=== PATIENT | male | born 1965 | race Hispanic/Latino ===

== ENCOUNTER 2017-03-20 01:58 | Emergency (ER) | payer SELFPAY ==
[2017-03-20 02:11] VITALS: BP 143/89; PULSE 88; RESP 17; TEMP 98.1; O2SAT 97
--- NOTE | 2017-03-20 02:44 | ED PDOC ---
HPI: Psych/Substance Abuse Time Seen by Provider: 03/20/17 02:07 Chief Complaint (Nursing): Alcohol Ingestion Chief Complaint (Provider): Alcohol intoxication History Per: Patient History/Exam Limitations: no limitations Onset/Duration Of Symptoms: Hrs Current Symptoms Are (Timing): Still Present Suicide/Self Injury Attempted (Context): None Modifying Factor(s): Alcohol Severity: Moderate Additional Complaint(s): The patient is a 51yo male, brought to the ED by EMS for evaluation s/p pt was found publicly intoxicated. Patient was found drunk at [employer]; patient admits to drinking today and denies any falls or head injury - there is a trauma report brought in by EMS of a head injury sustained by the patient. Patient offers no other medical complaints. Past Medical History Reviewed: Historical Data, Nursing Documentation, Vital Signs Vital Signs: Last Vital Signs Temp 98.1 F 03/20/17 02:08 Pulse 88 03/20/17 02:08 Resp 17 03/20/17 02:08 BP 143/89 03/20/17 02:08 Pulse Ox 97 03/20/17 02:08 - Medical History PMH: No Chronic Diseases - Surgical History Surgical History: No Surg Hx - Family History Family History: States: No Known Family Hx - Social History Alcohol: > 2 Drinks/Day - Allergies Allergies/Adverse Reactions: Allergies Allergy/AdvReac Type Severity Reaction Status Date / Time No Known Allergies Allergy Verified 03/20/17 02:11 Review of Systems ROS Statement: Except As Marked, All Systems Reviewed And Found Negative Neurological: Negative for: Other (head injury) Psych: Positive for: Other (ETOH intoxication) Physical Exam - Reviewed Nursing Documentation Reviewed: Yes Vital Signs Reviewed: Yes - Physical Exam Appears: Positive for: Well, Non-toxic, No Acute Distress Head Exam: Positive for: ATRAUMATIC (abrasion on left pareital scalp noted, no bleeding. ), NORMAL INSPECTION, NORMOCEPHALIC Skin: Positive for: Normal Color Eye Exam: Positive for: Normal appearance, EOMI, PERRL Neck: Positive for: Normal, Supple Cardiovascular/Chest: Positive for: Regular Rate, Rhythm Respiratory: Positive for: Normal Breath Sounds. Negative for: Respiratory Distress Gastrointestinal/Abdominal: Positive for: Normal Exam, Soft. Negative for: Tenderness Neurologic/Psych: Positive for: Alert, Oriented. Negative for: Motor/Sensory Deficits - ECG O2 Sat by Pulse Oximetry: 97 (RA) Pulse Ox Interpretation: Normal Medical Decision Making Medical Decision Making: Time: 0220 Impression: Alcohol intoxication, head injury Differential: r/o intercranial bleed Plan: * CT Head * Alcohol serum Time: 0500 CT Head FINDINGS: Minimal subcutaneous soft tissue swelling frontal region. No intracranial hemorrhage. No extra axial collections. No intracranial edema. Mild mucosal thickening in the ethmoid sinuses and right sphenoid sinus. Chronic appearing deformity of the medial left orbital wall. No depressed fractures. IMPRESSION: No acute intracranial injury. Pt is alert and awake. Ambulatory with steady gait. Stable for discharge. Scribe Attestation: Documented by Annika Patterson acting as a scribe for Berry Montenegro MD. Provider Attestation: All medical record entries made by the Scribe were at my direction and personally dictated by me. I have reviewed the chart and agree that the record accurately reflects my personal performance of the history, physical exam, medical decision making, and the department course for this patient. I have also personally directed, reviewed, and agree with the discharge instructions and disposition. Disposition - Clinical Impression Clinical Impression: Alcohol abuse with intoxication - Patient ED Disposition Is Patient to be Admitted: No Doctor Will See Patient In The: Office Counseled Patient/Family Regarding: Studies Performed, Diagnosis, Need For Followup - Disposition Referrals: [facility] [Outside] Disposition: Routine/Home Disposition Time: 05:43 Condition: GOOD Additional Instructions: Follow up with your PCP in 2-3 days. Instructions: Alcohol Intoxication (DC)
--- NOTE | 2017-03-20 04:46 | CT ---
EXAM: CT Head Without Intravenous Contrast CLINICAL HISTORY: 51 years old, male; Injury or trauma; Fall; Initial encounter; Concussion / head injury TECHNIQUE: Axial computed tomography images of the head/brain without intravenous contrast. This CT exam was performed using one or more of the following dose reduction techniques: automated exposure control, adjustment of the mA and/or kV according to patient size, and/or use of iterative reconstruction technique. Coronal and sagittal reformatted images were created and reviewed. EXAM DATE/TIME: 03/20/2017 2:35 AM COMPARISON: No relevant prior studies available. FINDINGS: Minimal subcutaneous soft tissue swelling frontal region. No intracranial hemorrhage. No extra axial collections. No intracranial edema. Mild mucosal thickening in the ethmoid sinuses and right sphenoid sinus. Chronic appearing deformity of the medial left orbital wall. No depressed fractures. IMPRESSION: No acute intracranial injury.
== END 2017-03-20 05:45 | disposition home or self-care (01) ==
LOC: H.ER 01:58
DX: F10.129 Alcohol abuse with intoxication, unspecified (principal); S09.90XA Unspecified injury of head, initial encounter; W19.XXXA Unspecified fall, initial encounter; Y92.410 Unspecified street and highway as the place of occurrence of the external cause
CPT/HCPCS: 70450; 82948; 99282; G0480